=== PATIENT | male | born 1965 | race Hispanic/Latino ===

== ENCOUNTER 2023-11-14 19:15 | Emergency (ER) | payer OTHER ==
[~2023-11-14] VITALS: Ht 170.2 cm; Wt 71.0 kg
[2023-11-14] VITALS (9 sets, daily range): BP systolic 106–124; BP diastolic 64–73
[~2023-11-14 19:15] MED LIST: ASPIRIN 81 LOW81 MG PO; JARDIANCE25 MG; LIPITOR40 M1 PO; METFORMIN HCL1000 MG PO; NOVOLIN N100 UNIT/3; ZESTRIL10 M1 PO
[2023-11-14] MEDS ORDERED: KETOROLAC TROMETHAMINE 30 MG/ML SDV IV ONE (20:10)
[2023-11-14] MEDS ORDERED: SODIUM CHLORIDE 0.9% 1,000 ML IV ONE (20:10)
[2023-11-14] MEDS ORDERED: MECLIZINE HCL 25 MG/TAB PO ONE (20:10)
[2023-11-14] MEDS ORDERED: ACETAMINOPHEN 500 MG TAB PO ONE (20:10)
[2023-11-14 20:31] LABS: BASO% 0.3 % (0-3); EOS% 1.5 % (0-8); HEMATOCRIT 49.1 % (39.0-50.0); HEMOGLOBIN 16.8 g/dl (14.0-18.0); IMMATURE GRANULOCYTES 0.1 % (0.0-5.0); LYMPH% 18.9 % (15-41); MEAN CELL VOLUME 93.9 fL CALC (80.0-100.0); MEAN CORPUSCULAR HGB 32.1 pG CALC (26.0-32.0); MEAN CORPUSCULAR HGB CONC 34.2 g/dL CAL (32.0-36.0); MONO% 8.8 % (2-13); NEUT# 5.22 thou/uL (1.82-7.42); NEUT% 70.4 % (42-76); RED BLOOD COUNT 5.23 mill/uL (4.70-6.10); RED CELL DISTRI WIDTH 11.8 % (11.5-15.5)
[2023-11-14 20:34] LABS: URINE BLOOD DIPSTICK Negative (NEGATIVE); URINE GLUCOSE - DIPSTICK >=1000 mg/dL (NEGATIVE); URINE KETONE Trace mg/dL (NEGATIVE); URINE LEUK ESTERASE Negative (NEGATIVE); URINE NITRITE - DIPSTICK Negative (Negative); URINE PROTEIN - DIPSTICK Negative (NEG-TRACE); URINE SPECIFIC GRAVITY >=1.030; URINE UROBILINOGEN - DIPSTICK 0.2 E.U./dL (0.2)
[2023-11-14 20:36] LABS: URINE COLOR Yellow
[2023-11-14 20:47] LABS: ALBUMIN 5.3 g/dL (3.2-5.0); ALKALINE PHOSPHATASE 93 u/l (38-126); ANION GAP 19 (6-22 (CALC)); BILIRUBIN, TOTAL 1.7 mg/dL (0.2-1.3); BUN 43 mg/dL (9-20); BUN/CREATININE RATIO 26 (12-20 (CALC)); CARBON DIOXIDE 17 mmol/l (22-30); CHLORIDE 104 mmol/l (95-108); CPK 442 u/l (55-170); CREATININE 1.7 mg/dL (0.7-1.3); ESTIMATED GFR 46 ML/MIN (>=90 (CALC)); POTASSIUM 4.7 mmol/l (3.5-5.1); SGOT/AST 62 u/l (17-59); SODIUM 135 mmol/l (137-146); TOTAL PROTEIN 9.5 g/dL (6.3-8.2)
[2023-11-14] MEDS ORDERED: LACTATED RINGER'S 1,000 ML IV ONE ×2 (21:10→23:55)
[2023-11-15] VITALS: BP 107/69
[2023-11-15 00:15] VITALS: BP 107/66
[2023-11-15 00:30] VITALS: BP 102/67
[2023-11-15 00:45] VITALS: BP 106/62
[2023-11-15 01:00] VITALS: BP 106/63
[2023-11-15 01:25] VITALS: BP 106/63
== END 2023-11-15 01:25 | disposition home or self-care (01) | DRG 558 ==
LOC: ED 19:15
PROVIDERS: Family Medicine
DX: M62.82 Rhabdomyolysis (principal); N17.9 Acute kidney failure, unspecified; E11.65 Type 2 diabetes mellitus with hyperglycemia; E86.0 Dehydration; I10 Essential (primary) hypertension; Z79.84 Long term (current) use of oral hypoglycemic drugs; Z79.4 Long term (current) use of insulin
CPT/HCPCS: Q9967